=== PATIENT | female | born 1965 | race Caucasian/White ===

== ENCOUNTER 2022-06-22 11:15 | Emergency (ER) | payer OTHER, SELFPAY ==
[2022-06-22 11:25] VITALS: BP 131/91; PULSE 91; RESP 20; TEMP 37; O2SAT 98; BMI 24.8
[2022-06-22 11:42] VITALS: BP 131/91; PULSE 91; RESP 20; TEMP 37; O2SAT 98
--- NOTE | 2022-06-22 11:44 | EXP.UTC ---
Discharge Plan Disposition Patient Disposition: Home, Self-Care Condition: Good Prescriptions Prescriptions: New prednisone [prednisone] 20 mg tablet 20 mg PO BID Qty: 10 0RF amoxicillin [amoxicillin] 500 mg tablet 500 mg PO BID 10 Days Qty: 20 0RF Referrals Follow up/Referrals: Provider,Referral, MD [Primary Care Provider] - See instructions Clinical Impressions Clinical Impression: Acute infection of sinus Instructions Patient Instructions: DI for Sinusitis [facility] [place] General Stated complaint: Congestion, drainage, headache Mode of Arrival: Ambulatory Source of Information: Patient Limitations: No Limitations Time Seen by Provider: 06/22/22 11:44 Description of Symptoms (Recalled from Triage Doc. by RN): PATIENT C/O BRAIN FOG , FATIGUE, FEELING RUN DOWN, AND OCCASIONAL FOG FOR APPROX 9 DAYS HEENT Symptoms (Recalled from RN notes): No Resp Symptoms (Recalled from RN notes): Yes Skin Symptoms (Recalled from RN notes): No MS Symptoms (Recalled from RN notes): No Functional Status (Recalled from RN notes): wnl History of Present Illness Provider Complaint: 56 yr old female presents for fatigue, cough,congestion, feeling run down and brain fog at times for 9 days. refuses swabs Related Data Previous Rx's Medication Instructions Recorded amoxicillin 500 mg tablet 500 mg PO BID 10 days #20 tabs 06/22/22 prednisone 20 mg tablet 20 mg PO BID #10 tabs 06/22/22 Allergies Allergy/AdvReac Type Severity Reaction Status Date / Time latex Allergy Verified 06/22/22 11:36 lidocaine Allergy Verified 06/22/22 11:36 Worker's Comp Is this a Worker's Comp case?: No [facility] Disclaimer: The information contained in this section may have been updated after the patient was seen, as this information can be updated by other users. 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) Smoking Status: Unknown if ever smoked alcohol intake: never current occupational status: employed Travel in the last 8 weeks: None ROS Obtained: Yes All systems reviewed & no additional complaints except as documented Constitutional Constitutional: Reports system reviewed and no additional complaints, except as documented, Reports as per HPI, Reports fatigue and Reports malaise Eyes Eyes: Reports system reviewed and no additional complaints, except as documented and Reports as per HPI ENT Ears, Nose, Mouth, and Throat: Reports system reviewed and no additional complaints, except as documented, Reports as per HPI, Reports nasal congestion and Reports nasal discharge Cardiovascular Cardiovascular: Reports system reviewed and no additional complaints, except as documented and Reports as per HPI Respiratory Respiratory: Reports system reviewed and no additional complaints, except as documented, Reports as per HPI, Reports change in phlegm color and Reports cough Gastrointestinal Gastrointestingal: Reports system reviewed and no additional complaints, except as documented Musculoskeletal Musculoskeletal: Reports system reviewed and no additional complaints, except as documented and Reports as per HPI Integumentary/Breasts Skin/Breast: Reports system reviewed and no additional complaints, except as documented and Reports as per HPI Neurologic Neurologic: Reports system reviewed and no additional complaints, except as documented and Reports as per HPI Endocrine Endocrine: Reports system reviewed and no additional complaints, except as documented, Reports as per HPI and Reports fatigue Hematologic/Lymphatic Henatologic/Lymphatic: Reports system reviewed and no additional complaints, except as documented and Reports as per HPI Allergic/Immunologic Allergic/Immunologic: Reports system reviewed and no additional complaints, except as documented and Repor
== END 2022-06-22 12:05 | disposition home or self-care (01) ==
PROVIDERS: Emergency Provider Nurse Practitioner Family
DX: J01.80 Other acute sinusitis (principal)
CPT/HCPCS: 99212; 99213; G0463